=== PATIENT | male | born 1965 | race Caucasian/White ===

== ENCOUNTER → 2018-06-07 | Outpatient (CLI) | payer MEDICARE, BC | END | disposition home or self-care (01) | LOC: LAB 16:49 → LAB SHORT 16:49 | DX: R10.13 Epigastric pain (principal) | CPT/HCPCS: 87338 ==

== ENCOUNTER 2018-07-19 09:06 | Day surgery (SDC) | payer MEDICARE, BC ==
[~2018-07-19] VITALS: Ht 177.8 cm; Wt 74.6 kg
[~2018-07-19 09:06] MED LIST: ACETAMINOPHEN-1 EACH PO; ALLO100 PO; AMLO5 PO; ATOR20 PO; BENADRYL25 MG PO; CARV25 PO; COLCHICINE0.6 MG PO; GLUCOSE TABLET PO; IBUP600 PO; MAGNESIUM PO; METF500 PO; NAPR220 PO; OMEPRAZOLE20 MG PO; RAMI5 PO; TRULICITY1.5 MG/0.5 SC; TUMS500 MG PO
--- NOTE | 2018-07-19 09:31 | NUR ---
Ambulatory in Day Surgery History, Chart, Medications and Allergies reviewed before start of procedure.Lungs clear T/O to Auscultation, DECREASED T/O. Patient States Post-Procedure ride home has been arranged. Patient confirms NPO status and agrees with scheduled surgery.
--- NOTE | 2018-07-19 11:17 | NUR ---
informed patient at 1000 of delay in room and surgery is delayed from starting for 1 hour at this time, patient unhappy about delay. rn called to inform .
--- NOTE | 2018-07-19 15:45 | NUR ---
PT UP, TO/FROM BR WITH STANDBY ASSIST. ICE PACK TO ABD. PO JUICE/CRACKERS, HOB UP.
--- NOTE | 2018-07-19 16:25 | NUR ---
Patient up to Ambulate independently. Gait steady. Discharge instructions reviewed with patient. Patient verbalizes understanding. Copy given to patient to take home. Patient States Post-Procedure ride home has been arranged. Discharged via wheelchair to private car for ride home.
== END 2018-07-19 22:39 | disposition home or self-care (01) ==
LOC: ORSCMMR 09:06 → ORD 11:00 → ORSCMMR 11:00
PROVIDERS: Surgery
PROC: 0YU54JZ Supplement Right Inguinal Region with Synthetic Substitute, Percutaneous Endoscopic Approach (ICD-10-PCS; principal; 2018-07-19 11:00)
PROC: 8E0W4CZ Robotic Assisted Procedure of Trunk Region, Percutaneous Endoscopic Approach (ICD-10-PCS; principal; 2018-07-19 11:00)
DX: K40.90 Unilateral inguinal hernia, without obstruction or gangrene, not specified as recurrent (principal); I10 Essential (primary) hypertension; E11.9 Type 2 diabetes mellitus without complications; K21.9 Gastro-esophageal reflux disease without esophagitis; F17.210 Nicotine dependence, cigarettes, uncomplicated; Z79.899 Other long term (current) drug therapy
CPT/HCPCS: 49650; S2900; 82947; C1781; J0690; J1100; J1885; J2250; J2405; J2704; J2765; J3010; J7120

== ENCOUNTER → 2019-09-08 | Outpatient (CLI) | payer MEDICARE, BC ==
[2019-09-08 19:28] LABS: Free Thyroxine 0.93 ng/dL (0.70-1.60)
[2019-09-08 19:30] LABS: Thyroid Stimulating Hormone 0.97 uIU/mL (0.360-4.800)
== END ==
LOC: LAB 13:00 → LAB SHORT 13:00 → LAB FUT 09-07 13:25
PROVIDERS: Nurse Practitioner Family
DX: R19.7 Diarrhea, unspecified (principal); R53.83 Other fatigue; R53.81 Other malaise
CPT/HCPCS: 84439; 84443; 86376; 87169

== ENCOUNTER → 2019-09-15 | Outpatient (CLI) | payer MEDICARE, BC ==
[2019-09-16 08:56] LABS: Stool Occult Bld Immuno 1 Negative (NEGATIVE)
== END | disposition home or self-care (01) ==
LOC: LAB 08:15 → LAB SHORT 08:15
PROVIDERS: Nurse Practitioner Family
DX: R19.7 Diarrhea, unspecified (principal)
CPT/HCPCS: 87177; 87209; G0328

== ENCOUNTER → 2020-06-02 | Outpatient (CLI) | payer MEDICARE, BC ==
[~2020-06-02] MED LIST changes: +ATOR80 PO; +Aspir 8181 MG; +CALCIUM MAGNES1 EAC1 PO; +DIPH50 PO; +GLUCOSE PO; +OMEP20ER PO; +Ramipril10 MG PO; +TRULICITY1.5 MG/0.1 SC; +ZEBUTAL 50-3251 EAC1 PO
== END | disposition home or self-care (01) ==
LOC: LAB SHORT 11:32 → LAB 11:32
DX: D48.5 Neoplasm of uncertain behavior of skin (principal)
CPT/HCPCS: 88305; 88312

== ENCOUNTER 2020-09-22 11:55 | Day surgery (SDC) | payer MEDICARE, BC ==
[~2020-09-22] VITALS: Ht 177.8 cm; Wt 76.3 kg
[~2020-09-22 11:55] MED LIST changes: -Aspir 8181 MG
[2020-09-22] MEDS ORDERED: Aspir 8181 MG (12:32)
== END 2020-09-22 13:40 | disposition home or self-care (01) ==
LOC: ORSCSDS 11:55
PROVIDERS: Internal Medicine Gastroenterology
PROC: 0DB68ZX Excision of Stomach, Via Natural or Artificial Opening Endoscopic, Diagnostic (ICD-10-PCS; principal; 2020-09-22 13:15)
DX: K21.9 Gastro-esophageal reflux disease without esophagitis (principal); K20.90 Esophagitis, unspecified without bleeding; E11.9 Type 2 diabetes mellitus without complications; Z79.84 Long term (current) use of oral hypoglycemic drugs; Z79.899 Other long term (current) drug therapy
CPT/HCPCS: 82947; 88305; 88342; J2704; J7120

== ENCOUNTER 2022-09-06 19:15 | Inpatient (IN) | payer MEDICARE, BC ==
[~2022-09-06] VITALS: Ht 177.8 cm; Wt 84.4 kg
[~2022-09-06 19:15] MED LIST changes: +Aspir 8181 MG; +FAMO20 PO; +METO10 PO; +ONDA4ODT MM
[2022-09-06 19:48] LABS: BASOPHILS ABSOLUTE AUTO 0.03 K/mm3 (0.00-0.23); BASOPHILS PERCENT AUTO 0 % (0-2); EOSINOPHILS ABSOLUTE AUTO 0.08 K/mm3 (0.00-0.68); EOSINOPHILS PERCENT AUTO 1 % (0-6); Hematocrit 36.3 % (37.0-53.0); Hemoglobin 12.3 g/dL (13.5-17.5); IMMATURE GRAN ABSOLUTE AUTO 0.02 K/mm3 (0.00-0.10); IMMATURE GRAN PERCENT AUTO 0 % (0-1); LYMPHOCYTES ABSOLUTE AUTO 2.12 K/mm3 (0.84-5.20); LYMPHOCYTES PERCENT AUTO 19 % (21-46); MONOCYTES ABSOLUTE AUTO 0.79 K/mm3 (0.16-1.47); MONOCYTES PERCENT AUTO 7 % (4-13); Mean Corpuscular HGB 30.1 pg (26.0-34.0); Mean Corpuscular HGB Conc 33.9 g/dL (31.5-36.5); Mean Corpuscular Volume 89 fL (80-100); Mean Platelet Volume 11.5 fL (9.1-12.4); NEUTROPHILS ABSOLUTE AUTO 8.11 K/mm3 (1.96-9.15); NEUTROPHILS PERCENT AUTO 73 % (41-73); Platelet Count 259 K/mm3 (150-400); RDW Coefficient Variation 12.6 % (11.7-14.2); RDW Standard Deviation 41.2 fL (35.1-46.3); Red Blood Cell Count 4.09 M/mm3 (4.30-5.90); White Blood Cell Count 11.15 K/mm3 (4.00-11.30)
[2022-09-06 20:05] LABS: Albumin, Blood 3.3 g/dL (3.4-5.0); Albumin/Globulin Ratio 0.8 (0.8-1.8); Bilirubin, Total 0.3 mg/dL (0.1-1.0); Bun/Creatinine Ratio 20.8 (12.0-20.0); Calcium, Blood 9.7 mg/dL (8.5-10.1); Creatinine, Blood 1.44 mg/dL (0.60-1.20); Globulin, Blood 3.9 g/dL (2.2-4.0); Potassium, Blood 4.2 mmol/L (3.5-5.5); Total Protein, Blood 7.2 g/dL (6.4-8.2)
[2022-09-06 22:41] VITALS: BP 197/114
--- NOTE | 2022-09-06 23:13 | NUR ---
ADMISSION NOTE PATIENT ADMITTED TO MEDICAL FLOOR FOLLOWING A DIAGNOSIS OF LEFT-SIDED PARESTHESIA WITH CONCERN FOR A CVA. CT NEGATIVE. MRI PENDING. REPORT RECEIVED FROM DELL LAYTON-ER. PATIENT TRANSFERED FROM [facility] TO BED INDEPENDENTLY. A&OX4. PATIENT EFFECTIVELY COMMUNICATES NEEDS. BP: 197/114; EDVIN MCCULLOUGH, NOTIFIED OF THIS. REFER TO EMAR FOR ORDERS. RR EVEN AND UNLABORED ON RA. PATIENT REPORTS SOME NUMBNESS/TINGLING TO LEFT SIDE BUT OTHERWISE DENIES ANY OTHER SYMTPOMS. NO OTHER ACUTE NEUROLOGICAL ABNORMALIES NOTED AT THIS TIME. PATIENT ORIENTED TO ROOM AND CALL LIGHT. BED LOW AND LOCKED. CALL LIGHT WITHIN REACH. THIS RN WILL CONTINUE TO MONITOR.
--- NOTE | 2022-09-07 03:49 | NUR ---
SENIOR PROCESS ENGINEER SUMMARY NO ACUTE EVENTS THIS SHIFT. A&OX4. PATIENT EFFECTIVELY COMMUNICATES NEEDS. PATIENT IS HYPERTENSIVE, VS OTHERWISE STABLE. ORDER FOR LABETALOL FOR SBP >200. PATIENT NOTED TO SLEEP WELL THROUGHOUT THE NIGHT. BED LOW AND LOCKED. CALL LIGHT WITHIN REACH. THIS RN WILL CONTINUE TO MONITOR. PATIENT REFUSED IV FLUIDS, STATING "I DO NOT WANT TO BE CONNECTED TO ANYTHING".
[2022-09-07 05:45] VITALS: BP 175/92
--- NOTE | 2022-09-07 07:27 | NUR ---
ASSUMED CARE: PT RESTING QUIETLY IN BED. STATES ONLY DEFICIT HE NOTICES IS NUMBNESS AND TINGLIN ON LEFT SIDE OF BODY FROM HEAD TO TOES. NO OTHER NEURO DEFICITS VISIBLY NOTED. TELE CALLED AND STATED PT HAD 9-BEAT RUN OF VTACH. PT WAS ASYMPTOMATC AND STATED HE DID NOT NOTICE THIS EVENT. DENIES FURTHER NEEDS OR CONCERNS AT THIS TIME.
--- NOTE | 2022-09-07 07:57 | NUR ---
DR ELLIOTT CALLED TO MAKE STAFF AWARE THAT SHE ORDERED A CORONARY RISK PANEL FOR PT AND TO KEEP HIM NPO UNTIL COMPLETED. MADE DR ELLIOTT AWARE OF RUN OF VTACH AND THAT TELE EXPRESSED SOME CONCERN ABOUT ST SEGMENT. TAX EXAMINING TECHNICIAN COMPLETED EKG ORDERED FOR THIS AM. DR ELLIOTT AWARE THAT BOTH EKGS ARE ON FRONT OF CHART FOR REVIEW.
[2022-09-07 08:03] VITALS: BP 186/100
[2022-09-07 08:44] LABS: Anion Gap 6 mmol/L (6-16); Blood Urea Nitrogen 23 mg/dL (8-24); Bun/Creatinine Ratio 19.3 (12.0-20.0); CHOL/HDL RATIO 8.2; CO2, Blood 26 mmol/L (21-32); Calcium, Blood 9.3 mg/dL (8.5-10.1); Chloride, Blood 106 mmol/L (98-108); Cholesterol 329 mg/dL (50-200); Creatinine, Blood 1.19 mg/dL (0.60-1.20); Glomerular Filtration Rate 71 (60-); Glucose, Blood 241 mg/dL (70-99); HDL Cholesterol 40 mg/dL (>39); Low Density Lipoprotein Chol 239 mg/dL (0-110); Magnesium, Blood 1.9 mg/dL (1.6-2.4); Potassium, Blood 4.1 mmol/L (3.5-5.5); Sodium, Blood 138 mmol/L (136-145); Triglycerides 248 mg/dL (30-160); Very Low Density Lipoprot Chol 49 mg/dL (6-32)
[2022-09-07] MEDS ORDERED: METF500 PO (09:11)
--- NOTE | 2022-09-07 11:12 | NUR ---
pt has been seen by ot and now wardrobe technician. Physical therapy to see pt when echo complete
--- NOTE | 2022-09-07 11:30 | NUR ---
PT TAKEN TO MRI VIA WHEELCHAIR BY IMAGING STAFF
--- NOTE | 2022-09-07 12:02 | NUR ---
PT RETURNED TO ROOM AFTER MRI VIA WHEEL CHAIR WITH TRANSPORT WORKER
[2022-09-07 14:56] VITALS: BP 158/94
--- NOTE | 2022-09-07 16:39 | NUR ---
PT CALLED STAFF TO ROOM STATING HE DID NOT WANT TO WAIT ANOTHER DAY AND WANTED TO SIGN HIMSELF OUT. ASKED PT IF HE WOULD BE WILLING TO WAIT TO SPEAK WITH THE DIETITIAN AND PT DECLINED. CALL TO DR ELLIOTT WHO STATED THAT PT HAD A STROKE, HAS ELEVATED BP AND ELEVATED CBGS AND SHOULD HAVE FURTHER MONITORING. PT WAS GIVEN THIS INFORMATION AND CONTINUED TO STATE HE WANTED TO GO HOME. ADVISED HIM TO FOLLOW UP WITH HIS PCP IN REGARDS TO MEDICATIONS AND FOLLOW UP APPOINTMENTS.AMBULATORY UPON DISCHARGE
== END 2022-09-07 16:38 | disposition left against medical advice (07) | DRG 65 ==
LOC: ER 19:15 → MEDS 19:16
PROVIDERS: Emergency Medicine; Internal Medicine; ADMIT Student in an Organized Health Care Education/Training Program
DX: I63.81 Other cerebral infarction due to occlusion or stenosis of small artery (principal); I47.29 Other ventricular tachycardia; N17.9 Acute kidney failure, unspecified; E11.65 Type 2 diabetes mellitus with hyperglycemia; R20.0 Anesthesia of skin; E78.5 Hyperlipidemia, unspecified; M10.9 Gout, unspecified; K21.9 Gastro-esophageal reflux disease without esophagitis; I12.9 Hypertensive chronic kidney disease with stage 1 through stage 4 chronic kidney disease, or unspecified chronic kidney disease; N18.30 Chronic kidney disease, stage 3 unspecified; R20.2 Paresthesia of skin; E11.22 Type 2 diabetes mellitus with diabetic chronic kidney disease; E86.0 Dehydration; Z53.21 Procedure and treatment not carried out due to patient leaving prior to being seen by health care provider; Z91.148 Patient's other noncompliance with medication regimen for other reason; Z88.0 Allergy status to penicillin; Z88.5 Allergy status to narcotic agent; Z88.6 Allergy status to analgesic agent; Z88.8 Allergy status to other drugs, medicaments and biological substances; Z98.890 Other specified postprocedural states; Z87.891 Personal history of nicotine dependence; Z79.84 Long term (current) use of oral hypoglycemic drugs; Z79.899 Other long term (current) drug therapy
CPT/HCPCS: 36415; 70450; 70551; 80053; 80061; 80069; 82947; 83036; 83735; 85025; 93005; 93010; 93306; 93880; 96360; 96372; 97116; 97162; 97165; 97530; 99285-25; A9270; G0378; J1650; J1815; J7030

== ENCOUNTER 2024-06-30 21:39 | Emergency (ER) | payer MEDICARE ==
[~2024-06-30] VITALS: Ht 177.8 cm; Wt 81.7 kg
[2024-06-30 21:43] VITALS: BP 171/73
== END 2024-06-30 21:59 | disposition home or self-care (01) ==
LOC: ER 21:39
DX: S01.512A Laceration without foreign body of oral cavity, initial encounter (principal); X58.XXXA Exposure to other specified factors, initial encounter; Z87.891 Personal history of nicotine dependence; Z88.0 Allergy status to penicillin; Z88.5 Allergy status to narcotic agent; Z79.85 Long-term (current) use of injectable non-insulin antidiabetic drugs; Z79.1 Long term (current) use of non-steroidal anti-inflammatories (NSAID); Z79.899 Other long term (current) drug therapy; I10 Essential (primary) hypertension; E11.9 Type 2 diabetes mellitus without complications
CPT/HCPCS: 99282

== ENCOUNTER → 2024-11-07 | Outpatient (CLI) | payer MEDICARE, BC ==
[2024-11-07 13:56] LABS: Microalbumin, Urine Quant. 143.0 mg/L (0.000-20.000); Protein, Urine Quantitative 27.7 mg/dL (0.0-11.9)
[2024-11-13 15:14] LABS: ALBUMIN %,URINE 100.0 %; ALPHA-1 %,URINE 0.0 %; ALPHA-2 %,URINE 0.0 %; BETA GLOBULIN %,URINE 0.0 %; GAMMA GLOBULIN %,URINE 0.0 %; HOURS COLLECTED Random hr; PARAPROTEIN %,URINE 0.0 %
== END ==
LOC: LAB SHORT 06:00 → LAB 06:00 → LAB FUT 11-05 07:45
PROVIDERS: Internal Medicine Nephrology
DX: N18.30 Chronic kidney disease, stage 3 unspecified (principal); D63.1 Anemia in chronic kidney disease; N25.81 Secondary hyperparathyroidism of renal origin; E55.9 Vitamin D deficiency, unspecified; E78.00 Pure hypercholesterolemia, unspecified; R76.9 Abnormal immunological finding in serum, unspecified; R94.5 Abnormal results of liver function studies; R94.6 Abnormal results of thyroid function studies; G60.9 Hereditary and idiopathic neuropathy, unspecified; D51.8 Other vitamin B12 deficiency anemias; D50.9 Iron deficiency anemia, unspecified; N40.1 Benign prostatic hyperplasia with lower urinary tract symptoms
CPT/HCPCS: 81050; 82043; 82570; 84156; 84166; 86335